=== PATIENT | female | born 1965 | race Caucasian/White ===

== ENCOUNTER 2024-07-28 14:05 | Outpatient (CLI) | payer OTHER, SELFPAY ==
--- NOTE | 2024-07-28 14:13 | XR_ITS ---
WS: [email or web address] XR lumbar spine 2-3V* [id number] REASON FOR EXAM: OSTEOARTHRITIS FINDINGS: Moderate rotatory dextroscoliosis of the lumbar spine. Mild chronic appearing biconcave compression deformities of the lumbar vertebrae L1-L5. Mild narrowing of the disc spaces L1-L5 with mild vertebral body osteophytosis. Moderate hypertrophic degenerative arthropathy of the facet joints L4-S1. No spondylolysis. No significant spondylolisthesis. 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 XR/XR lumbar spine 2-3V* [id number] IMPRESSION: Moderate degenerative spondylosis as above. Calcified pleural mass as above.
--- NOTE | 2024-07-28 14:13 | XR_ITS ---
WS: [email or web address] XR shoulder RT min 2V* [id number] REASON FOR EXAM: OSTEOARTHRITIS FINDINGS: No fracture or focal bone lesion. Moderate narrowing of the acromioclavicular joint with mild subchondral sclerosis and moderate marginal osteophytosis. Moderate lateral downward slant of the acromial process. Glenohumeral joint space is not well demonstrated due to positioning. There is mild subchondral sclerosis and cystic change in the glenoid and mild to moderate osteophytosis of the humeral head. Mild to moderate sclerosis and cystic change in the greater biceps tuberosity. There are several small sclerotic rimmed cystic areas in the humeral head and surgical neck. XR/XR shoulder RT min 2V* [id number] IMPRESSION: Moderate to significant osteoarthritis of the acromioclavicular joint and gleno humeral joint. Moderate rotator cuff tendon arthropathy.
--- NOTE | 2024-07-28 14:13 | XR_ITS ---
WS: [email or web address] XR hand RT 2V [id number] REASON FOR EXAM: OSTEOARTHRITIS FINDINGS: No fracture or focal bone lesion. No bone erosion or periosteal reaction. Mild narrowing with mild subchondral sclerosis and osteophytosis in the DIP joints of the second through the fourth fingers and the thumb. DIP of the fifth finger is fused. Similar arthropathic change in the PIP joint of the fifth finger. Similar arthropathic change in the first MCP joint and carpal metacarpal joint of the thumb, more severe. No significant arthropathy in the MCP joints of the second through the fifth fingers. XR/XR hand RT 2V [id number] IMPRESSION: Mild to moderate osteoarthritis of the right hand as above.
--- NOTE | 2024-07-28 14:13 | XR_ITS ---
WS: [email or web address] XR hand LT 2V [id number] REASON FOR EXAM: OSTEOARTHRITIS FINDINGS: No fracture or focal bone lesion. No bone erosion or periosteal reaction. Mild narrowing of the joint space with mild subchondral sclerosis and osteophytosis in the DIP joints of the fingers and thumb. Similar arthropathy in the MCP and carpometacarpal joint of the thumb. No significant arthropathy in the MCP joints of the second through the fifth fingers. Incidentally noted is a moderate length discrepancy between the radius and ulna with the elongated ulna deviated medially. XR/XR hand LT 2V [id number] IMPRESSION: Mild osteoarthritis as above. Incidental wrist abnormality as above.
== END 2024-07-28 14:06 | disposition home or self-care (01) ==
LOC: RAD 14:08
PROVIDERS: PCP Nurse Practitioner; Visit Provider Thoracic Surgery (Cardiothoracic Vascular Surgery)
DX: Z02.71 Encounter for disability determination (principal); M19.011 Primary osteoarthritis, right shoulder; R93.7 Abnormal findings on diagnostic imaging of other parts of musculoskeletal system; M25.711 Osteophyte, right shoulder; M85.611 Other cyst of bone, right shoulder; M41.86 Other forms of scoliosis, lumbar region; M48.56XD Collapsed vertebra, not elsewhere classified, lumbar region, subsequent encounter for fracture with routine healing; M51.369 Other intervertebral disc degeneration, lumbar region without mention of lumbar back pain or lower extremity pain; M25.78 Osteophyte, vertebrae; M47.897 Other spondylosis, lumbosacral region; J94.9 Pleural condition, unspecified; M19.042 Primary osteoarthritis, left hand; M25.742 Osteophyte, left hand; R93.6 Abnormal findings on diagnostic imaging of limbs; M19.041 Primary osteoarthritis, right hand; M25.741 Osteophyte, right hand; M18.9 Osteoarthritis of first carpometacarpal joint, unspecified
CPT/HCPCS: 72100; 73030; 73120

== ENCOUNTER 2024-08-03 13:57 | Outpatient (CLI) | payer OTHER, SELFPAY ==
[2024-08-03 14:11] VITALS: PULSE 90; RESP 18; O2SAT 97
[2024-08-03] MEDS: albuterol 2.5 mg/3 mL Neb INHALATION (14:11)
== END 2024-08-03 13:58 | disposition home or self-care (01) ==
LOC: RT 13:58
PROVIDERS: PCP Nurse Practitioner; Visit Provider Nurse Practitioner Family
DX: Z02.71 Encounter for disability determination (principal)
CPT/HCPCS: 94060; J7613